=== PATIENT | female | born 1970 | race Caucasian/White ===

== ENCOUNTER 2017-03-09 20:13 | Emergency (ER) | payer BC ==
--- NOTE | 2017-03-09 20:36 | ERPHSYRPT ---
- History of Present Illness Time Seen by Provider: 03/09/17 20:30 Source: patient Physician History: CC: uti Hx: 46 y/o patient of Dr Clemons with urinary urgency, burning, frequency. No fever, chills, vomiting. She is perimenopausal but currently has menses. Timing/Duration: today Home Medications: Lorazepam 0.5 mg [Ativan 0.5 MG] 0.5 mg PO DAILY 03/09/17 [History] - Review of Systems Constitutional: No Fever Abdominal/Gastrointestinal: No Abdominal Pain Genitourinary Symptoms: Dysuria, Frequency, Urgency Skin: No Rash - Past Medical History Pertinent Past Medical History: No - Social History Patient Lives Alone: No - Nursing Vital Signs Nursing Vital Signs: Initial Vital Signs Temperature 97.8 F Temperature Source Oral Pulse Rate 85 Respiratory Rate 16 Blood Pressure [Right Arm] 127/77 - Physical Exam General Appearance: alert Eye Exam: PERRL/EOMI Ears, Nose, Throat Exam: moist mucous membranes Neck Exam: normal inspection, non-tender, supple Respiratory Exam: lungs clear Cardiovascular Exam: regular rate/rhythm Gastrointestinal/Abdomen Exam: soft, No tenderness Neurologic Exam: alert, oriented x 3, cooperative, nml station & gait Skin Exam: warm, dry, No rash SpO2 Interpretation: normal SpO2: 98 Oxygen Delivery: Room Air - Course Nursing assessment & vital signs reviewed: Yes - Progress Progress Note: 03/09/17 20:35 She is healthy and has UTI symptoms. She chose empiric Rx with abtx and pyridium. Counseled pt/family regarding: diagnosis, need for follow-up - Departure Time of Disposition: 20:35 Departure Disposition: Home Clinical Impression: Acute cystitis Qualifiers: Hematuria presence: without hematuria Qualified Code(s): N30.00 - Acute cystitis without hematuria Condition: Stable Critical Care Time: No Referrals: ANA CLEMONS [Primary Care Provider] - Instructions: Urinary Tract Infection (UTI) Additional Instructions: URINARY TRACT INFECTION 1. You will need to drink plenty of fluids in order to keep your urinary system flushed. These fluids should mainly consist of water and juices. 2. Take medications as directed. You need to completely finish any antiobiotic prescription given. 3. Try to avoid coffee, tea, alcohol, and seasoned foods as they may cause bladder irritation. 4. If signs and symptoms persist after 3-4 days, you will need to follow up with your family physician. 5. Female Patients: A. Avoid intercourse for 3-4 days. B. Empty bladder before and after intercourse to reduce risk of re- infection. C. After emptying bladder, wipe from front to back to reduce the risk of re- infection. Rx pyridium. Rx macrobid. Follow up with Dr Clemons Thursday if not better. Prescriptions: Nitrofurantoin Macro 100 mg [Macrobid 100MG Capsule] 100 mg PO BID #10 capsule Phenazopyridine HCl 200 mg [Pyridium 200 mg] 1 tab PO TID #6 tablet
[2017-03-09 20:43] VITALS: BP 118/69; PULSE 86; O2SAT 97
== END 2017-03-09 20:43 | disposition home or self-care (01) ==
LOC: ED 20:13
DX: N30.00 Acute cystitis without hematuria (principal); R39.15 Urgency of urination; R35.0 Frequency of micturition
CPT/HCPCS: 99281

== ENCOUNTER 2022-08-19 06:54 | Day surgery (SDC) | payer BC ==
[2022-08-19] MEDS ORDERED: CEFAZOLIN 2 GM-D5W BAG** 2 GM/50 ML ML IV ONE ×2 (07:09→07:12)
[2022-08-19] MEDS ORDERED: Lactated Ringers 1,000 ML IV ONE ×2 (07:12→09:50)
[2022-08-19] MEDS ORDERED: Lactated Ringers 1,000 ML IV SCH (07:30)
[2022-08-19] MEDS ORDERED: Versed 2 MG/2 ML Injection ONE (08:59)
[2022-08-19] MEDS ORDERED: Xylocaine-Mpf 2% 5 Ml Vial ONE (09:09)
[2022-08-19] MEDS ORDERED: Decadron 4 MG INJ ONE (09:09)
[2022-08-19] MEDS ORDERED: DIPRIVAN 200 MG/20 ML IV ONE (09:09)
[2022-08-19] MEDS ORDERED: Zofran 4 MG/2 ML VIAL ONE (09:09)
[2022-08-19] MEDS ORDERED: SUBLIMAZE 100 MCG/2 ML ONE (09:10)
[2022-08-19 10:36] VITALS: O2SAT 100
[2022-08-19] MEDS ORDERED: TYLENOL EXTRA STRENGTH 500 MG ONE (11:17)
[2022-08-19] MEDS ORDERED: TYLENOL EXTRA STRENGTH 500 MG PO PRN (11:22)
[2022-08-19 11:31] VITALS: PULSE 59
[2022-08-19 12:02] VITALS: BP 114/63
--- NOTE | 2022-08-20 10:57 | OP ---
SURGERY DATE: 08/19/2022 SURGERY TIME: 913 PREOPERATIVE DIAGNOSIS: 1. POSTMENOPAUSAL BLEEDING WITH CERVICAL POLYP. POSTOPERATIVE DIAGNOSIS: 1. POSTMENOPAUSAL BLEEDING WITH CERVICAL POLYP. PROCEDURE: 1. Cervical polypectomy. 2. Hysteroscopy D&C. SURGEON: Dr. Saad Cameron. RESIDENT MEDICAL OFFICER: Turbine Measurements Engineer. ANESTHESIA: General. ESTIMATED BLOOD LOSS: Minimal. COMPLICATIONS: None. FINDINGS: The risks, benefits, indications, and alternatives of the procedure were reviewed with the patient prior to the procedure. Patient understood the risks of infection, bleeding, bowel injury, bladder injury, ureteral injury, uterine perforation, pelvic infection, thromboembolic disorder associated with this surgery and desires to have this procedure as a possible means to alleviate her current medical condition. DESCRIPTION OF PROCEDURE: At this point, the patient was taken to the OR, given general sedation, placed in the dorsal lithotomy position, prepped and draped in the usual sterile fashion. A weighted speculum was then placed in the patient's vagina and the anterior lip of the cervix was grasped with the single toothed tenaculum. Cervical polyp forceps were used to grasp a polypoid lesion noted in the external os where the cervical polyp was removed and excised without complication using the polyp forceps. From this point, endocervical dilators were advanced through the endocervical canal as a means to dilate the cervix and a 5 mm hysteroscope was then advanced through the endocervical region where visualization of the endometrial lining appeared to be within normal limits with no gross abnormalities located within the endometrial canal. From this point, the hysteroscope was removed and a curette was then placed into the fundus of the uterus and curettage was performed in all quadrants of the uterus retrieving a mild to moderate amount of tissue. From this point, hemostasis was obtained. All instruments were then removed from the patient's vaginal region. The patient then taken out of the dorsal lithotomy position, was taken out of anesthesia, and was then taken to the recovery room in stable condition. All instruments and Laps were accounted for X 2.
== END 2022-08-19 12:04 | disposition home or self-care (01) ==
LOC: SDC 06:54
PROVIDERS: ATTEND Obstetrics & Gynecology
DX: N95.0 Postmenopausal bleeding (principal); N84.1 Polyp of cervix uteri
CPT/HCPCS: 81025; J0690; J1100; J2250; J2405; J2704; J3010; A9270-GY

== ENCOUNTER 2024-11-11 08:33 | Emergency (ER) | payer BC ==
--- NOTE | 2024-11-11 08:36 | ERPHSYRPT ---
- History of Present Illness Time Seen by Provider: 11/11/24 08:36 Historian: patient, family Exam Limitations: no limitations Physician History: This is a 54-year-old white female patient who arrives by private vehicle accompanied by her significant other and is a patient of Dr. Bush because of lower abdominal pain for approximately 1 week. She describes the pain as intermittently intense sharp stabbing pain. When she is sitting down she feels a lot of pressure down into the pelvis. It is painful to have a bowel movement. The pain is not in the perianal area. The pain is in the anterior bilateral suprapubic region. Patient has never had a colonoscopy before. Initially, the patient felt that she was constipated and she used a MiraLAX and prune juice shruthi ansing which soften the stool and she was able to pass stool without difficulty. However, the pain is still intermittently present. Patient feels the urge to urinate but is having difficulty doing so. She has not had any hematemesis or hematochezia. Patient has not had any nausea or vomiting symptoms. Patient states that she has had intravenous morphine and Demerol in the past that she tolerated well Timing/Duration: week(s) (1) Activities at Onset: none Quality: sharpness, stabbing Abdominal Pain Onset Location: suprapubic (Bilateral) Pain Radiation: no radiation Severity of Pain-Max: moderate Severity of Pain-Current: none (Patient states that she does not have pain at this time and does not require any pain medicine.) Modifying Factors: Improves With: nothing Associated Symptoms: denies symptoms Previous symptoms: no prior history, no recent treatment Allergies/Adverse Reactions: codeine Allergy (Verified 08/19/22 07:14) Anaphylactic Reaction syncope,shaking, decreased resp. Home Medications: Lorazepam 0.5 mg [Ativan 0.5 MG] 0.5 mg PO DAILY 03/09/17 [History] Travel Risk - International Travel Have you traveled outside of the country in past 3 weeks: No - Emerging Infectious Disease Are you exhibiting symptoms associated with any current EIDs: No - Review of Systems Constitutional: No Symptoms Eyes: No Symptoms Ears, Nose, & Throat: No Symptoms Respiratory: No Symptoms Cardiac: No Symptoms Abdominal/Gastrointestinal: Abdominal Pain (Bilateral suprapubic) Genitourinary Symptoms: Urgency, No Frequency, No Hematuria, No Flank Pain, No Vaginal Bleeding Musculoskeletal: No Symptoms Skin: No Symptoms Neurological: No Symptoms Psychological: No Symptoms Endocrine: No Symptoms Hematologic/Lymphatic: No Symptoms Immunological/Allergic: No Symptoms All Other Systems: Reviewed and Negative - Past Medical History Pertinent Past Medical History: Yes Neurological History: No Pertinent History ENT History: No Pertinent History Cardiac History: No Pertinent History Respiratory History: No Pertinent History Endocrine Medical History: No Pertinent History Musculoskeletal History: Fractures GI Medical History: No Pertinent History History: No Pertinent History Psycho-Social History: Anxiety Female Reproductive Disorders: No Pertinent History Other Medical History: ANXIETY, fx of right ankle( no surgical) - Past Surgical History Past Surgical History: Yes Neuro Surgical History: No Pertinent History Cardiac: No Pertinent History Respiratory: No Pertinent History Gastrointestinal: No Pertinent History Genitourinary: No Pertinent History Musculoskeletal: No Pertinent History Female Surgical History: Dilation & Curettage - Social History Smoking Status: Never smoker Exposure to second hand smoke: No Drug Use: none Patient Lives Alone: No - Nursing Vital Signs Nursing Vital Signs: Initial Vital Signs Temperature 97.0 F 11/11/24 08:40 Pulse Rate 75 11/11/24 08:40 Respiratory Rate 20 11/11/24 08:40 Blood Pressure 110/72 11/11/24 08:40 O2 Sat by Pulse Oximetry 98 11/11/24 08:40 Pain Scale Pain Intensity 0 - Physical Exam General Appearance: no apparent distress, alert, anxiety Eye Exam: PERRL/EOMI, eyes nml inspection Ears, Nose, Throat Exam: normal ENT inspection, moist mucous membranes Neck Exam: normal inspection, non-tender, supple, full range of motion Respiratory Exam: airway intact, No chest tenderness, No respiratory distress Gastrointestinal/Abdomen Exam: tenderness (Suprapubic bilaterally to palpation), guarding (Suprapubic bilaterally to palpation) Pelvic Exam: not done Rectal Exam: not done Back Exam: normal inspection, normal range of motion, No CVA tenderness, No vertebral tenderness Extremity Exam: normal inspection, normal range of motion, pelvis stable Neurologic Exam: alert, oriented x 3, cooperative, service desk lead II-XII nml as tested, nml cerebellar function, nml station & gait, sensation nml Skin Exam: normal color, warm, dry Lymphatic Exam: No adenopathy SpO2 Interpretation: normal O2 Delivery: Room Air - Course Nursing assessment & vital signs reviewed: Yes Ordered Tests: Active Orders 24 hr Category Date Time Status IV Insertion STAT Care 11/11/24 08:50 Active ABDOMEN AND PELVIS W/0 CONTRAS [CT] Stat Exams 11/11/24 08:50 Completed AMYLASE Stat Lab 11/11/24 09:00 Completed CBC W DIFF Stat Lab 11/11/24 09:00 Completed CMP Stat Lab 11/11/24 09:00 Completed LIPASE Stat Lab 11/11/24 09:00 Completed UA W/RFX UR CULTURE Stat Lab 11/11/24 10:12 Completed Medication Summary Discontinued Medications Generic Name Dose Route Start Last Admin Trade Name Freq PRN Reason Stop Dose Admin Methylprednisolone Sodium 0 mg 11/11/24 10:26 Succinate 125 mg/ Sterile IV 11/11/24 10:27 Water 2 ml STAT ONE Levofloxacin 500 mg 11/11/24 10:25 Levofloxacin 500 Mg Tablet PO 11/11/24 10:26 STAT ONE Metronidazole 500 mg 11/11/24 10:25 Metronidazole 500 Mg Tablet PO 11/11/24 10:26 STAT ONE Lab/Rad Data: Laboratory Result Diagrams 11/11/24 09:00 11/11/24 09:00 Laboratory Results 11/11/24 11/11/24 11/11/24 Range/Units 10:12 09:00 09:00 WBC 8.8 (3.98-10.04) x10^3/uL RBC 4.28 (3.93-5.22) x10^6/uL Hgb 12.9 (11.2-15.7) g/dL Hct 38.6 (34.1-44.9) % MCV 90.2 (79.4-94.8) fL MCH 30.1 (25.6-32.2) pg MCHC 33.4 (32.2-35.5) g/dL RDW 11.7 (11.7-14.4) % Plt Count 400 H (182-369) x10^3/uL MPV 8.7 L (9.4-12.3) fL Gran % 76.4 H (34.0-71.1) % Immature Gran % (Auto) 0.5 H (0.001-0.429) % Nucleat RBC Rel Count 0.0 (0.00-0.2) % Eos # (Auto) 0.10 (0.04-0.36) x10^3/uL Immature Gran # (Auto) 0.04 H (0.001-0.031) x10^3u/L Absolute Lymphs (auto) 1.23 (1.18-3.74) x10^3/uL Absolute Monos (auto) 0.66 (0.24-0.86) x10^3/uL Absolute Nucleated RBC 0.00 (0.00-0.012) x10^3u/L Lymphocytes % 14.0 L (19.3-51.7) % Monocytes % 7.5 (4.7-12.5) % Eosinophils % 1.1 (0.7-5.8) % Basophils % 0.5 (0.1-1.2) % Absolute Granulocytes 6.70 H (1.56-6.13) x10^3/uL Basophils # 0.04 (0.01-0.08) x10^3/uL Sodium 138 (135-145) mmol/L Potassium 3.9 (3.5-5.1) mmol/L Chloride 102 (98-107) mmol/L Carbon Dioxide 33 H (22-30) mmol/L Anion Gap 7.1 (5-15) MEQ/L BUN 10 (7-17) mg/dL Creatinine 0.65 (0.52-1.04) mg/dL Estimated GFR 105.2 ML/MIN Glucose 94 (74-106) mg/dL Calcium 9.3 (8.4-10.2) mg/dL Total Bilirubin 0.30 (0.2-1.3) mg/dL AST 36 (14-36) U/L ALT 16 (0-35) U/L Alkaline Phosphatase 74 (38-126) U/L Serum Total Protein 7.5 (6.3-8.2) g/dL Albumin 4.1 (3.5-5.0) g/dL Amylase 58 (30-110) U/L Lipase 89 (23-300) U/L Urine Color Yellow (Yellow) Urine Appearance Clear (Clear) Urine pH 7.0 (4.6-8.0) Ur Specific [place] 1.015 (1.005-1.030) Urine Protein Negative (Negative) Urine Glucose (UA) Negative (Negative) mg/dL Urine Ketones Negative (Negative) Urine Blood Negative (Negative) Urine Nitrite Negative (Negative) Urine Bilirubin Negative (Negative) Urine Urobilinogen 0.2 (0.2) mg/dL Ur Leukocyte Esterase Negative (Negative) U Hyaline Cast (Auto) NONE SEEN (0-2) /LPF Urine Microscopic RBC 0-2 (0-5) /HPF Urine Microscopic WBC 0-2 (0-5) /HPF Ur Epithelial Cells None Seen (None Seen) /HPF Urine Bacteria None Seen (None Seen) /HPF Urine Culture Reflexed NO (NO) - Progress Progress: pain not gone completely Progress Note: 11/11/24 09:10 My medical decision making and the assignment of moderate complexity to this patient's medical issue today is based on review of the patient's past medical history, review of the patient's medication list, reviewed patient drug allergy list, history present illness and physical findings on examination. The workup in this patient includes placement of intravenous line, urinalysis, CBC, CMP, amylase, lipase, CT scan of the abdomen pelvis without contrast. Differential diagnosis includes but is not limited to acute appendicitis, pancreatitis, colitis, diverticulitis, ovarian/pelvic pathology, urinary tract infection 11/11/24 10:[address] scan of the abdomen pelvis without contrast was interpreted by the radiologist and I reviewed the impression. The impression states noncomplicated distal sigmoid colitis/proctitis. No free air or free fluid. 2.7 cm hepatic hypodense lesion. Rule out hemangioma. Malignancy not entirely excluded. CT scan abdomen and pelvis with contrast recommended to better define the hepatic lesion. The results of the CT scan were discussed with the patient and her significant other 11/11/24 10:28 I interpreted the patient's laboratory data results. Based on the laboratory data results, the patient does not have leukocytosis but there is a left shift present. The urinalysis is pending. However we will be covering urinary tract infection by placing this patient on both Levaquin and Flagyl. 11/11/24 10:42 I discussed pain control options with the patient. She states she will just take Tylenol and ibuprofen for pain control. Codeine based products give her significant hives and she wants to avoid them. Counseled pt/family regarding: lab results, diagnosis, need for follow-up, rad results Medical Desision Making - Independent Historian Additional History obtained from: Spouse - Diagnostic Testing Diagnostic test were ordered, analyzed, and reviewed by me: Yes Radiological Interpretation: Reviewed by me, Teleradiologist Report - Risk of complications The pt has a mod risk of morbidity or mortality based on: Need for prescription drug management - Departure Departure Disposition: Home Clinical Impression: Colitis, Hepatic lesion Condition: Stable Critical Care Time: No Referrals: FABIO BUSH MD [Primary Care Provider] - Follow up/PCP as directed Additional Instructions: Drink plenty of clear liquids before advancing your diet. Take your antibiotics as prescribed. Call the office of Dr. Bush today, 11/11/2024, to make arrangements for follow-up appointment for further evaluation and management including further outpatient studies to better define the liver lesion and to discuss arrangements for colonoscopy in the near future. Use Tylenol and ibupr ofen for pain control Prescriptions: Metronidazole 500 mg [Flagyl 500 MG] 500 mg PO TID #21 tablet Levofloxacin [Levaquin 500 MG Tablet] 500 mg PO DAILY #7 tablet
[2024-11-11 08:46] VITALS: TEMP 97
[2024-11-11 09:10] LABS: BASOPHIL % 0.5 % (0.1-1.2); Basophil (Absolute #) 0.04 x10^3/uL (0.01-0.08); Eosinophil % 1.1 % (0.7-5.8); Hematocrit 38.6 % (34.1-44.9); Hemoglobin 12.9 g/dL (11.2-15.7); IMMATURE GRAN # 0.04 x10^3u/L (0.001-0.031); IMMATURE GRAN % 0.5 % (0.001-0.429); Lymphocyte (Absolute #) 1.23 x10^3/uL (1.18-3.74); Mean Cell Volume 90.2 fL (79.4-94.8); Mean Corpuscular Hemoglobin 30.1 pg (25.6-32.2); Mean Corpuscular Hgb Concent. 33.4 g/dL (32.2-35.5); Mean Platelet Volume 8.7 fL (9.4-12.3); Monocyte (Absolute #) 0.66 x10^3/uL (0.24-0.86); Monocytes % 7.5 % (4.7-12.5); Neutrophil % 76.4 % (34.0-71.1); Platelet Count 400 x10^3/uL (182-369); Red Blood Count 4.28 x10^6/uL (3.93-5.22); Red Cell Distribution Width 11.7 % (11.7-14.4); White Blood Count 8.8 x10^3/uL (3.98-10.04)
[2024-11-11 09:14] LABS: ALBUMIN 4.1 g/dL (3.5-5.0); ANION GAP 7.1 MEQ/L (5-15); BILIRUBIN,TOTAL 0.3 mg/dL (0.2-1.3); Calcium 9.3 mg/dL (8.4-10.2); Creatinine 1 0.65 mg/dL (0.52-1.04); EST GLOMERULAR FILTRATION RATE 105.2 ML/MIN; Potassium 3.9 mmol/L (3.5-5.1); Total Protein 7.5 g/dL (6.3-8.2)
--- NOTE | 2024-11-11 10:19 | XRAY ---
Indication: Lower abdominal pain. Multiple contiguous axial images obtained through the abdomen and pelvis without contrast. Comparison: None Lung bases clear. Heart not enlarged. Noncontrasted stomach and bowel loops appear nonobstructed. Appendix not visualized. Mild diffuse scattered colonic fecal debris. Minimal scattered descending and sigmoid diverticulosis. Distal sigmoid/rectum demonstrates mild circumferential wall thickening with pericolonic stranding favoring colitis/proctitis. No free fluid/air. Right lobe liver demonstrates 2.7 cm round hypodense lesion, not a cyst in appearance. Remaining liver, gallbladder, pancreas, spleen, adrenal glands, kidneys, ureters, bladder, uterus, and aorta are unremarkable for noncontrast exam. Osseous structures intact with minimal L5-S1 degenerative disc disease. Impression: 1. Noncomplicated distal sigmoid colitis/proctitis. No free fluid/air. 2. 2.7 cm hepatic hypodense lesion. Rule out hemangioma. Malignancy not completely excluded. CT liver with contrast using hemangioma protocol may yield further information. 3. Chronic findings including colonic diverticulosis and L5-S1 degenerative disc disease.
[2024-11-11 10:22] VITALS: O2SAT 98
[2024-11-11 10:29] LABS: Appearance Clear (Clear); Bacteria None Seen /HPF (None Seen); Bilirubin Negative (Negative); Blood Negative (Negative); Epithelial Cells None Seen /HPF (None Seen); Glucose, Urine Negative (Negative); Hyaline Casts NONE SEEN /LPF (0-2); Ketones Negative (Negative); Leukocyte Esterase Negative (Negative); Nitrite Negative (Negative); Protein,Urine Dip Negative (Negative); RBC 0-2 /HPF (0-5); Specific Gravity 1.015 (1.005-1.030); Urobilinogen 0.2 mg/dL (0.2); WBC 0-2 /HPF (0-5)
[2024-11-11] MEDS ORDERED: Levofloxacin 500 MG Tablet ONE (10:46)
[2024-11-11] MEDS ORDERED: Sterile H2O 10 ml IJ ONE (10:46)
[2024-11-11] MEDS ORDERED: Flagyl 500 MG ONE (10:46)
[2024-11-11] MEDS ORDERED: solu-MEDROL ONE (10:46)
[2024-11-11] MEDS: Levofloxacin 500 MG Tablet PO ONE (10:47)
[2024-11-11] MEDS: Flagyl 500 MG PO ONE (10:47)
[2024-11-11] MEDS: solu-MEDROL 125 MG, Sterile H2O 10 ml 2 ML IV ONE (10:48)
[2024-11-11 10:50] VITALS: BP 109/77; PULSE 71; RESP 16
== END 2024-11-11 11:12 | disposition home or self-care (01) ==
LOC: ED 08:33
DX: K52.9 Noninfective gastroenteritis and colitis, unspecified (principal); K76.9 Liver disease, unspecified; R10.30 Lower abdominal pain, unspecified; Z79.899 Other long term (current) drug therapy
CPT/HCPCS: 36415; 74176; 80053; 81001; 82150; 83690; 85025; 96374; 99284; J2919; A9270-GY

== ENCOUNTER 2025-02-09 06:07 | Day surgery (SDC) | payer BC ==
[2025-02-09] MEDS: Lactated Ringers 1,000 ML IV SCH (06:15)
[2025-02-09] MEDS ORDERED: Versed 2 MG/2 ML Injection ONE (07:48)
[2025-02-09] MEDS ORDERED: propofoL IV ONE ×2 (07:51→08:07)
[2025-02-09] MEDS ORDERED: Xylocaine-Mpf 2% 5 Ml Vial ONE (07:51)
[2025-02-09] MEDS ORDERED: ATROPINE SULFATE 1MG ONE (08:04)
[2025-02-09 08:25] VITALS: TEMP 97.3; O2SAT 100
[2025-02-09 08:42] VITALS: BP 102/69; PULSE 63; RESP 18
--- NOTE | 2025-02-09 21:11 | OP ---
SURGERY DATE/TIME: 02/09/2025 [id number] PREOPERATIVE DIAGNOSIS: Screening colonoscopy. POSTOPERATIVE DIAGNOSIS: Rectal polyp x1. PROCEDURE: Colonoscopy. SURGEON: Jonathon Stanton MD ANESTHESIA: MAC, Zbigniew Dykes CRNA. ESTIMATED BLOOD LOSS: Minimal. SPECIMENS: Hot forceps polypectomy from the rectum. DESCRIPTION OF PROCEDURE AND FINDINGS: After informed written consent was obtained, the patient was taken to the endoscopy suite. She was placed in a left lateral decubitus position, and anesthesia was titrated to desired level of consciousness. Digital rectal exam showed normal sphincter tone and no internal lesions. The scope was inserted into the rectum, and sequentially the entire colonic mucosa was traversed. The level of the cecum was reached and verified under direct visualization of the ileocecal valve. Upon withdrawal, careful mucosal inspection revealed no gross abnormalities until the proximal rectum was reached. There was a small sessile polyp grasped with the forceps, cauterized, and removed in its entirety, and sent for pathology testing. The area was hemostatic following removal. Prior to withdrawal, retroflexion showed no internal lesions. The scope was removed, and the patient was transferred to the recovery room in good condition. She will follow up in a week for pathology report.
== END 2025-02-09 08:55 | disposition home or self-care (01) ==
LOC: SDC 06:07
PROVIDERS: ATTEND Family Medicine
DX: Z12.11 Encounter for screening for malignant neoplasm of colon (principal); K62.1 Rectal polyp
CPT/HCPCS: J0461; J2250; J2704